=== PATIENT | male | born 1985 | race Caucasian/White ===

== ENCOUNTER 2016-04-15 13:36 | Emergency (ER) | payer OTHER ==
[~2016-04-15] VITALS: Ht 182.9 cm; Wt 90.9 kg
[2016-04-15 13:41] VITALS: BP 124/67; PULSE 88; RESP 20; O2SAT 99
[2016-04-15 14:12] LABS: BASOPHILS % (AUTO) 0.1 % (0-3); EOSINOPHILS % (AUTO) 0.2 % (0-5); MONOCYTES % (AUTO) 7.4 % (4-12); Mean Corpuscular Volume 87.1 fL (81-100); NEUTROPHILS % (AUTO) 88.3 % (40-74); Platelet Count 233 bil/L (150-400)
[2016-04-15 14:34] LABS: Magnesium 1.9 mg/dL (1.6-2.6)
[2016-04-15] MEDS ORDERED: 0.9% Sodium Chloride 1,000 ML IV ONE ×3 (14:57→18:05)
[2016-04-15] MEDS ORDERED: Ondansetron 2 mg/mL 2 mL Inj IVPUSH ONE (15:00)
--- NOTE | 2016-04-15 15:30 | ED.REPORT ---
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 Associated symptoms include a migraine headache and mild abdominal pain onset two days ago. The patient also reports experiencing several episodes of diarrhea, hematochezia, and mucous- filled stool three weeks ago, which resolved after five days. The patient has since been constipated. He denies fever, loss of appetite, or other symptoms. The patient has had similar symptoms with salmonella in the distant past. The patient has not traveled out of the country, taken antibiotics, or had contact with any ill individuals recently. Nursing Notes Stated Complaint: VOMITING/BLOOD IN STOOL Chief Complaint: Male Abdominal Pain Nursing Notes Reviewed: Yes (VocalIQ not reconciled) Allergies: Coded Allergies: No Known Allergies (Unverified , 04/15/16) Scheduled PRN Ondansetron ODT (Ondansetron ODT) 8 Mg Tab.rapdis 8 MG PO Q4H PRN PRN For Nausea Polyethylene Glycol 3350 (Miralax) 17 Gm Powd.pack 17 GM PO DAILY PRN PRN For Constipation General Time Seen by MD: 14:57 Chief Complaint Nausea, Vomiting Hx Obtained From: Patient Arrived By: Walk-in Onset Occurred: Yesterday Symptom Duration: Since onset Diarrhea: Diarrhea with mucous, Diarrhea is bloody Location: : Diffuse Quality: Painful Severity: Current: Mild Severity: Maximum: Mild Associated with: Reports: Abdominal pain, Blood in stool, Constipation, Headache Pertinent Negative: Relieved by nothing Recent Healthcare: No recent doctor visit Similar Sx Previous: Yes Past Medical History Past Medical History Seb's disease Past Surgical History None reported Smoking History Never Smoker Social History Drug Use: Denies drug use Other Social History: Good social support Ambulatory Status Independent Review of Systems Review of Systems Note: - Loss of appetite Constitutional: Denies: Fever GI: Reports: Abdominal pain (Mild), Constipation, Diarrhea (Resolved), Hematochezia, Mucousy stool, Nausea, Vomiting Neurologic: Reports: Headache Complete sys rev & neg: except as marked. Respiratory: Denies: Non-productive cough, Shortness of breath Physical Exam Initial Vital Signs Vital Signs (First) Date Time Temp Pulse Resp B/P Pulse Ox O2 Delivery O2 Flow Rate FiO2 04/15/16 13:41 36 88 20 124/67 99 Room Air Initial VS: Reviewed, Vital signs normal Head / Eyes: Atraumatic, Normocephalic ENT: Conjunctiva normal, No scleral icterus Neck: Supple, Full range of motion Respiratory: Breath sounds normal, Clear to auscultation, No respiratory distress Cardiovascular: Regular rate & rhythm, Heart sounds normal Skin: Warm, Dry, No cyanosis Neurologic: Alert, Oriented, Nonfocal Psychiatric: Mood/affect normal, Behavior normal, Normal thought content General/Constitutional: Awake, Alert, No acute distress Abdomen: Soft, Non-tender Interpretation & Diagnostics Lab Results Interpretation Result Diagram: 04/15/16 1405 04/15/16 1405 Test 04/15/16 13:45 04/15/16 14:05 04/15/16 19:10 Hold Desir Top Tube Received (Received) White Blood Count 8.7th/mm3 (3.8-10.1) Red Blood Count 5.26mil/mm3 (4.40-5.80) Hemoglobin 16.3g/dL (13.8-17.2) Hematocrit 45.8% (41.0-50.0) Mean Corpuscular Volume 87.1fL (81-100) Mean Corpuscular Hemoglobin 31.0pg (27.0-35.0) Mean Corpuscular Hemoglobin Concent 35.6% (32.0-37.0) Red Cell Distribution Width 12.8% (12.3-15.4) Platelet Count 233bil/L (150-400) Neutrophils (%) (Auto) 88.3% (40-74) Lymphocytes (%) (Auto) 3.8% (14-46) Monocytes (%) (Auto) 7.4% (4-12) Eosinophils (%) (Auto) 0.2% (0-5) Basophils (%) (Auto) 0.1% (0-3) Sodium Level 135mEq/L (134-144) Potassium Level 4.2mEq/L (3.5-5.2) Chloride Level 99mEq/L (97-108) Carbon Dioxide Level 20mmol/L (18-29) Blood Urea Nitrogen 19mg/dL (6-20) Creatinine 0.99mg/dL (0.76-1.27) Estimat Glomerular Filtration Rate 94mL/min (>59) Glucose Level 134mg/dL (60-99) Calcium Level 9.2mg/dL (8.5-10.1) Magnesium Level 1.9mg/dL (1.6-2.6) Total Bilirubin 1.0mg/dL (0.0-1.2) Aspartate Amino Transf (AST/SGOT) 20U/L (0-50) Alanine Aminotransferase (ALT/SGPT) 34U/L (0-44) Alkaline Phosphatase 62U/L (25-150) Total Protein 7.6g/dL (6.4-8.4) Albumin 4.8g/dL (3.4-5.0) Lipase 22U/L (13-60) Hold Urine Received (Received) Lab Results Interpretation: CBC normal CMP normal X-Ray Abdominal Interpretation ACUTE ABDOMINAL SERIES: IMPRESSION: Nonspecific bowel gas pattern. If patient's symptoms persist, recommend repeat imaging or CT. Dictated by: Ronald Lerner RRA Interpreted: Flori Salas MD on 04/15/2016 at 16:16 Transcribed by: CHRISTOPHER on 04/15/2016 at 16:19 Approved by: Flori Salas MD, PhD on 04/15/2016 at 16:32 Interpretation / Wet Read by: Interpret - Radiologist Re-Eval/Medical Decision Med Decision/Clinical Course This is a 30-year-old male presents with a chief complaint of nausea vomiting the patient notes that 3 weeks ago he had several days of diarrhea with a trace amount of blood in it, since the diarrhea completely resolved his then been replaced with constipation. And then today he developed nausea and vomiting. For some decreased intake, not certain about a fever, has no additional complaints. Feels extremely dehydrated. On exam he has normal vitals. He appears mildly fatigued, but not in extremis. His abdomen is soft, and entirely nontender-he has no findings of peritonitis or findings to suggest an acute surgical abdomen over several exams and a protracted period Does appear mildly dehydrated, but not severely so. She received IV fluids. Labs were obtained were normal. Concerned about a bowel obstruction, but my suspicion is quite low has no prior surgical history describes more constipation than marv findings of bowel obstruction, but given his description and abdominal series was obtained and was negative. He is also worried about Crohn's, but has no prior history of similar symptoms, and only a short days of diarrhea, and does not have a clinical history strongly suggestive of this, and certainly does not have enough findings to suggest need for follow-up for colonoscopy. He is reassured at this time, although this indicated these have not further bouts of bloody stools, or symptoms return and are not resolving-the GI follow-up might be warranted at that time. The patient received IV fluids and nausea medicine is much improved. He is able take by mouth. I am not finding any markers of a dangerous infectious etiology, surgical etiology or need for additional testing. Patient's comfort and discharged home. A prescription for some when necessary and acetone was provided, is very concerned about the diarrhea since received a bottle of magnesium citrate, as well as a prescriptionfor some when necessary MiraLAX. Routine precautions, discharge instrutions, and return instructions reviewed. Patient's discharge in good condition Source of Hx: Old records Re-Evaluation/Progress : Time of Eval: 17:52 Patient Status: Condition improved Re-Evaluation/Progress Note: Patient rechecked. Discussed with patient x-ray and lab results, diagnosis, and plan for discharge. Follow-up and return to the ER instructions given. Patient agrees with plan for care and all questions were addressed. Differential Diagnosis: Positive: Dehydration, Negative: Appendicitis, Boerhaave syndrome, Bowel obstruction, C. diff colitis, Cholecystitis, Priya-Pérez syndrome, Migraine headache, Pancreatitis , Counseled Regarding: Diagnosis, Lab results, Need for follow-up, When/why to return to ED Discharge & Departure Impression: Primary Impression: Nausea and vomiting Vomiting type: unspecified Vomiting Intractability: unspecified Qualified Code: R11.2 - Nausea with vomiting, unspecified Additional Impression: Dehydration Disposition: Home Discharge Condition All VS Reviewed: Yes Condition: Improved Additional Instructions: 1. A definitive or dangerous cause of the nausea and vomiting, for the diarrhea experienced a few weeks ago, was not identified. This is common, and most symptoms of this nature we think are caused by likely a viral infection. There are no findings on her history, exam, or laboratory tests at this days's to suggest inflammatory bowel disease such as Crohn's or ulcerative colitis. 2. Take ondansetron 8 mg-lead dissolve underneath the tongue-up to every 4 hours as needed for nausea. 3. Take small, frequent sips of fluids-advance diet as tolerated. 4. Once nausea has completely resolved, take magnesium citrate 150 mL(half a bottle) on day one, and the remaining 150 L the next day-as this should help with the bowels. You can then (if needed) take Miralax 1 tablespoon in 4 ounces fluid daily if needed 5. Return if new or worsening symptoms. 6. Follow up with your regular doctor as needed. Referrals: Edwin Doran MD (PCP) Rejiibe Attestation Portions of this note were transcribed by Carmen West. I, Dr. Salomon, personally performed the history, physical exam, and medical decision-making; I reviewed and confirmed the accuracy of the information in the transcribed note. Signed by: Chaitanya Campos, 04/15/2016, 18:55 copies to: Edwin Doran MD, Matthew F MD Apr 15, 2016 15:30 CARMEN WEST Apr 15, 2016 15:38
--- NOTE | 2016-04-15 16:19 | DRSVH ---
PROCEDURE: X-RAY ACUTE ABDOMINAL SERIES ([id number]) INDICATIONS: vomiting, ?ARTHUR TECHNIQUE: One view chest and two views of the abdomen were acquired. COMPARISON: None. FINDINGS: Surgical changes and devices: None. Chest: Lungs are clear. Heart size is normal. No pleural effusions. No pneumoperitoneum. Abdomen: [place] fluid levels are present throughout the bowel and a paucity of gas seen within the m idabdomen and left abdomen. No pneumatosis or bowel thickening. No pneumoperitoneum. Bones: No suspicious bony lesions. IMPRESSION: Nonspecific bowel gas pattern. If patient's symptoms persist, recommend repeat imaging or CT. Dictated by: Ronald Lerner RRA Interpreted: Flori Salas MD on 04/15/2016 at 16:16 Transcribed by: CHRISTOPHER on 04/15/2016 at 16:19 Approved by: Flori Salas MD, PhD on 04/15/2016 at 16:32
[2016-04-15] MEDS ORDERED: ONDA8TAB10 PO (18:10)
[2016-04-15] MEDS ORDERED: POLY17PO6 PO (18:10)
[2016-04-15 19:08] VITALS: BP 118/61; PULSE 68; RESP 16; O2SAT 99
[2016-07-18] MEDS ORDERED: LEVO137T2 PO (13:42)
== END 2016-04-15 19:07 | disposition home or self-care (01) ==
LOC: SED 13:36
DX: E86.0 Dehydration (principal); R11.2 Nausea with vomiting, unspecified; R10.84 Generalized abdominal pain; R19.7 Diarrhea, unspecified; K59.00 Constipation, unspecified
CPT/HCPCS: 36415; 74022; 80053; 83690; 83735; 85025; 96361; 96374; 99285; J2405; J7030

== ENCOUNTER 2016-07-19 14:32 | Day surgery (SDC) | payer OTHER ==
[~2016-07-19] VITALS: Ht 182.9 cm; Wt 90.0 kg
[~2016-07-19 14:32] MED LIST: LEVO137T2 PO; ONDA8TAB10 PO; POLY17PO6 PO; Sodium Chloride LOK Flush 10 mL Syringe IV PRN; fentaNYL-PF 50 mCg/mL 2 mL Inj IVPUSH PRN
[2016-07-19] MEDS ORDERED: fentaNYL-PF 50 mCg/mL 2 mL Inj IVPUSH ONE (14:33)
[2016-07-19 14:54] VITALS: BP 135/71; PULSE 60; RESP 16; O2SAT 100
[2016-07-19 16:01] VITALS: BP 114/70; PULSE 77; RESP 16; O2SAT 100
[2016-07-19 16:10] VITALS: BP 115/69; PULSE 55; RESP 16; O2SAT 99
[2016-07-19] MEDS ORDERED: 0.9% Sodium Chloride 1,000 ML IV ONE (16:19)
--- NOTE | 2016-07-20 05:47 | ENDO ---
[address] [address] ENDOSCOPY PROCEDURE PATIENT: RAJINDER DELACRUZ : 1985 MR#: [id number] ADMIT: 07/19/2016 JOB ID: [id number] DATE OF SERVICE: 07/19/2016 TYPE OF OPERATION: Colonoscopy with biopsy. PREOPERATIVE DIAGNOSIS: Bloody diarrhea. POSTOPERATIVE DIAGNOSIS(ES): Loss of architecture and vascularity from 60 cm from the anus to the rectum, suspicious for left-sided ulcerative colitis, status post biopsy. ANESTHESIA: 1. Fentanyl 100 mcg. 2. Versed 6 mg IV administered. COMPLICATIONS: None. BLOOD LOSS: Minimal. DESCRIPTION OF PROCEDURE: After risks and benefits were explained to the patient, informed consent was obtained. After anesthesia administered, colonoscope was inserted from the rectum to the terminal ileum. Mucosa carefully examined. Prep of the patient was excellent. After the procedure was done, the scope was withdrawn and the procedure terminated. FINDINGS: Upon inspection of the anus, no masses, hemorrhoids, ulcers or fissures were seen. Throughout the entire examination, there was loss of architecture and vascularity that was seen from 60 cm from the anus to the rectum, suspicious for left-sided ulcerative colitis. There were pinpoint ulcers that were also seen. The colon proximal to this region appeared normal with healthy vasculature and architecture was identified. Biopsies were taken to the terminal ileum which appeared normal and 60 cm from the anus to rule out inflammatory bowel disease. Retroflexion was not performed due to active disease. IMPRESSION: Loss of architecture and vascularity with a ulcerations seen from 60 cm from the anus to the rectum, suspicious for loss ulcerative colitis, status post biopsy. RECOMMENDATION: 1. lialda 2.4 g qday. 2. Rowasa enemas 7 g per rectal every night at bedtime. 3. Await biopsy results. 4. Follow up in GI clinic in one month and the patient starts taking his medications. JUSTIN
--- NOTE | 2016-07-23 13:52 | PATH ---
SURGICAL PATHOLOGY Attending Physician:Alberto Bennett MD CASE STATUS: Signed Out PATIENT NAME: RAJINDER DELACRUZ PID: [id number] : 1985 DATE COLLECTED:07/19/2016 00:00 SPECIMEN: 1: Colon, Biopsy 2: Small Intestine/Bowel, Biopsy CLINICAL HISTORY: 1. ERYTHEMA COLON BIOPSY AT 60CM 2. TERMINAL ILEUM BIOPSY FINAL DIAGNOSIS: 1.COLON BIOPSY AT 60 CM: CHANGES OF CHRONIC ACTIVE COLITIS WITH CRYPTITIS AND FOCAL CRYPT ABSCESSES AND FOCAL MUCOSAL EROSION. Negative for dysplasia and malignancy. Negative for granulomas. 2.TERMINAL ILEUM BIOPSY: FRAGMENTS OF NORMAL TERMINAL ILEUM MUCOSA. Negative for granulomas. Negative for significant inflammation, dysplasia and malignancy. ICD10 K51.9 GROSS DESCRIPTION: 1. Received in formalin, labeled with the patient' s name and "erythema 60 cm colon biopsy", are multiple fragments of barrios, soft tissue ranging in size from 0.1 x 0.1 x 0.1 cm to 0.2 x 0.1 x 0.1 cm. All fragments are totally submitted in cassette 1A. 2. Received in formalin, labeled with the patient' s name and "terminal ileum biopsy", are two fragments of barrios, soft tissue ranging in size from 0.1 x 0.1 x 0.1 cm to 0.2 x 0.1 x 0.1 cm. All fragments are totally submitted in cassette 2A. ([id number]) MICRO DESCRIPTION: See diagnosis. ICD-9 CODES: CPT CODES: 1: 11327 2: 16058 Electronically Signed Out Rolan Finley MD [facility] [address], [place] [address] Technical component performed at [facility], [address], [place], [address]
== END 2016-07-19 23:59 | disposition home or self-care (01) ==
LOC: END 14:32
PROVIDERS: ATTEND Internal Medicine Gastroenterology
DX: K52.89 Other specified noninfective gastroenteritis and colitis (principal); R19.7 Diarrhea, unspecified; E03.9 Hypothyroidism, unspecified; Z80.0 Family history of malignant neoplasm of digestive organs
CPT/HCPCS: 45380; G0500; J2250; J3010; J7030